=== PATIENT | male | born 1975 | race African-American/Black ===

== ENCOUNTER 2019-05-17 01:50 | Emergency (ER) | payer MEDICAID ==
[~2019-05-17] VITALS: Ht 170.2 cm; Wt 82.0 kg
[2019-05-17] MEDS ORDERED: KETOROLAC 30MG/ML VIAL IV STA (02:23)
[2019-05-17 02:38] LABS: BASOPHILS % 0.3 % (0.0-2.0); EOSINOPHILS % 1.5 % (0.0-5.0); HEMATOCRIT. 40.3 % (42.0-52.0); HEMOGLOBIN. 13.7 g/dL (14.0-18.0); LYMPHOCYTES % 42.8 % (20.0-50.0); MEAN CORPUSCULAR HEMOGLOBIN 30.4 pg (28.0-32.0); MEAN CORPUSCULAR VOLUME 89.8 fL (80.0-94.0); MONOCYTES % 9.1 % (2.0-8.0); NEUTROPHILS % 46.3 % (40.0-76.0); PLATELET 359 x1000/uL (130-400); RED BLOOD CELL COUNT 4.49 mill/uL (4.7-6.1); RED CELL DISTRIBUTION WIDTH 13.9 % (11.6-14.6)
[2019-05-17 02:45] LABS: CHLORIDE 104 mEq/L (98-107)
[2019-05-17] MEDS ORDERED: LEVOFLOXACIN 750MG PREMIX 150 ML IV SCH (05:15)
[2019-05-17] MEDS ORDERED: ACETAMINOPHEN 500MG TABLET PO ONE (05:30)
[2019-05-17 15:15] VITALS: BP 145/82
== END 2019-05-17 15:24 | disposition home or self-care (01) ==
LOC: ER 01:50
DX: K40.20 Bilateral inguinal hernia, without obstruction or gangrene, not specified as recurrent (principal); Z88.0 Allergy status to penicillin; Z88.8 Allergy status to other drugs, medicaments and biological substances
CPT/HCPCS: 36415; 74176; 76870; 80053; 83690; 85025; 93976; 96365; 96375; 99284; J1885; J1956; Z7610